=== PATIENT | male | born 1965 ===

== ENCOUNTER → 2025-01-26 | Outpatient (REF) | payer BC ==
[2025-01-26 13:26] LABS: PROSTATIC SPECIFIC AG MONITOR 1.76 NG/ML (< 4.00)
[2025-01-26 13:28] LABS: ALT/SGPT 22.0 U/L (7.0-40); AST/SGOT 28.0 U/L (<34); CALCIUM LEVEL 9.2 MG/DL (8.3-10.6); CARBON DIOXIDE LEVEL 30.0 MMOL/L (20-31); CHLORIDE LEVEL 105.0 MMOL/L (98-107); CHOLESTEROL LEVEL 229.0 MG/DL (<200); CHOLESTEROL RISK RATIO 4.57 (<5); CREATININE FOR GFR 1.01 MG/DL (0.70-1.30); GLOMERULAR FILTRATION RATE 84.1 (>49); LDL CHOLESTEROL 154.7 MG/DL (<100); NON-HDL-C 178.9 MG/DL; POTASSIUM SERUM 4.6 MMOL/L (3.5-5.1); SODIUM LEVEL 143.0 MMOL/L (136-145); TRIGLYCERIDES LEVEL 121.0 MG/DL (<150)
[2025-01-26 14:17] LABS: ESTIMATED AVERAGE GLUCOSE 108.0 MG/DL (60-110)
[2025-01-28 01:52] LABS: LDL DIRECT 151 mg/dL (<100)
== END ==
LOC: M LABDRAWC 11:51
DX: Z00.00 Encounter for general adult medical examination without abnormal findings (principal); Z12.5 Encounter for screening for malignant neoplasm of prostate